=== PATIENT | female | born 1955 | race Caucasian/White ===

== ENCOUNTER 2023-01-10 05:06 | Observation (INO) ==
--- NOTE | 2022-12-21 09:14 | PAT Medication Instructions ---
Medication Instructions Date of Service December 21, 2022 Home Medications L.acidophilus,rhamnosus-B.breve-S.thermophilus 3 billion cell chew tab 1 tab PO QAM acetaminophen 650 mg tablet,extended release 650 mg PO Q12H PRN Pain atorvastatin 20 mg tablet 20 mg PO QAM biotin 1 mg capsule 1 mg PO QAM calcium polycarbophil 625 mg tablet (FiberCon) 625 mg PO QAM celecoxib 200 mg capsule (Celebrex) 200 mg PO QAM escitalopram oxalate 5 mg tablet 2.5 mg PO QAM Multivitamin 50 Plus tablet) 1 tab PO QAM omeprazole 40 mg capsule,delayed release 40 mg PO QAM tramadol 50 mg tablet 50 mg PO TID PRN Pain valsartan 160 mg-hydrochlorothiazide 25 mg tablet 1 tab PO QAM ASK your surgeon for instructions celecoxib 200 mg capsule (Celebrex) 200 mg PO QAM STOP taking 2 weeks before surgery (or as soon as possible if surgery is within 2 weeks) biotin 1 mg capsule 1 mg PO QAM DO NOT take the morning of surgery L.acidophilus,rhamnosus-B.breve-S.thermophilus 3 billion cell chew tab 1 tab PO QAM calcium polycarbophil 625 mg tablet (FiberCon) 625 mg PO QAM Multivitamin 50 Plus tablet) 1 tab PO QAM valsartan 160 mg-hydrochlorothiazide 25 mg tablet 1 tab PO QAM Take morning of surgery With a small sip of water, OTHERWISE NOTHING TO EAT OR DRINK AFTER MIDNIGHT: acetaminophen 650 mg tablet,extended release 650 mg PO Q12H PRN Pain (if needed) atorvastatin 20 mg tablet 20 mg PO QAM escitalopram oxalate 5 mg tablet 2.5 mg PO QAM omeprazole 40 mg capsule,delayed release 40 mg PO QAM tramadol 50 mg tablet 50 mg PO TID PRN Pain (if needed) Take evening before surgery acetaminophen 650 mg tablet,extended release 650 mg PO Q12H PRN Pain (if needed) tramadol 50 mg tablet 50 mg PO TID PRN Pain (if needed) Other Notes If you have any questions please call us at [phone] or [phone] or [phone] or [phone]
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
[2023-01-10] MEDS: ACETAMINOPHEN 500 MG TAB PO SCH ×4 (05:44→20:03)
[2023-01-10] MEDS ORDERED: CeleBREX 200 MG CAP PO SCH (06:00)
[2023-01-10] MEDS ORDERED: DEXAMETHASONE SOD INJ 4 MG/ML VIAL IV SCH (06:00)
[2023-01-10] MEDS ORDERED: TRANEXAMIC ACID 1,000 MG **IV Pre-op IV SCH (06:00)
[2023-01-10] MEDS ORDERED: FAMOTIDINE 20 MG TAB PO SCH (06:00)
[2023-01-10] MEDS ORDERED: LR 60ML/HR IV SCH (06:00)
[2023-01-10] MEDS ORDERED: Scopolamine 1 MG TDSY TD SCH (06:00)
[2023-01-10] MEDS ORDERED: METOCLOPRAMIDE HCL 10 MG TABLET PO SCH (06:00)
[2023-01-10] MEDS ORDERED: LR 500ML BOLUS, THEN 15ML/HR IV SCH (06:00)
[2023-01-10] MEDS ORDERED: BUPIVACAINE 0.5 % 5 MG/1 ML PF 10ML VIAL ONE (06:27)
[2023-01-10] MEDS ORDERED: BUPIVACAINE/EPINEPHRINE 0.5% MPF 1:200,000 30 ML VIAL ONE (06:39)
[2023-01-10] MEDS ORDERED: PROPOFOL IV EMULSION 10 MG/ML 20 ML VIAL IV ONE ×3 (06:43→08:14)
[2023-01-10] MEDS ORDERED: LIDOCAINE 2% MPF LOCAL 5 ML VIAL INFIL ONE (06:43)
[2023-01-10] MEDS ORDERED: ONDANSETRON INJ 2 MG/ML 2 ML VIAL ONE ×2 (06:43→07:18)
[2023-01-10] MEDS ORDERED: MIDAZOLAM HCL 1 MG/ML 2ML VIAL ONE (06:43)
[2023-01-10] MEDS ORDERED: MoRPHine SULFATE PF 1 MG/ML 10 ML AMP/VIAL ONE (06:44)
--- NOTE | 2023-01-10 06:57 | History & Physical Bridge Note ---
Date of Service January 10, 2023 History & Physical Bridge Note I have examined the patient, reviewed the History & Physical and in the interval since the performance of the History & Physical I have noted the following changes of clinical significance: no changes noted
[2023-01-10] MEDS ORDERED: DEXAMETHASONE SOD INJ 4 MG/ML VIAL ONE (07:18)
[2023-01-10] MEDS ORDERED: GLYCOPYRROLATE 0.2 MG/ML VIAL ONE (07:18)
[2023-01-10] MEDS ORDERED: ePHEDrine sulfate 50 MG/ML SYR ONE (07:52)
[2023-01-10] MEDS ORDERED: PHENYLEPHRINE HCL 10 MG/ML VIAL ONE (07:52)
[2023-01-10] MEDS ORDERED: PHENYLEPHRINE 100MCG/ML 5ML SYR ONE (07:52)
[2023-01-10] MEDS ORDERED: MEPERIDINE HCL 25 MG/ML CARP/VIAL IV PRN (08:08)
[2023-01-10] MEDS ORDERED: ePHEDrine sulfate 50 MG/ML AMP IV PRN (08:08)
[2023-01-10] MEDS ORDERED: NALBUPHINE HCL INJ 10 MG/ML AMP IV PRN (08:08)
[2023-01-10] MEDS ORDERED: MoRPHine SULFATE PF 1 MG/ML 10 ML AMP/VIAL INT SPINAL ONE (08:08)
[2023-01-10] MEDS ORDERED: ONDANSETRON INJ 2 MG/ML 2 ML VIAL IV PRN (08:08)
[2023-01-10] MEDS ORDERED: diphenhydrAMINE 50 MG/ML VIAL IV PRN (08:08)
[2023-01-10] MEDS ORDERED: NALOXONE HCL 1 MG in SODIUM CHLORIDE 0.9% 1000ML 1,000 ML IV PRN (08:08)
[2023-01-10] MEDS ORDERED: NALOXONE HCL 0.4 MG/1 ML VIAL/CARP IV PRN (08:08)
[2023-01-10] MEDS ORDERED: NALOXONE HCL 0.08 MG in SYRINGE 1.8 ML IV PRN (08:08)
[2023-01-10] MEDS ORDERED: LACTATED RINGER'S 500 ML IV PRN (08:08)
[2023-01-10] MEDS ORDERED: DC INTRASPINAL MORPHINE SCH (08:15)
[2023-01-10] MEDS ORDERED: NO NARCOTICS OR SEDATIVES SCH (08:15)
[2023-01-10] MEDS ORDERED: SODIUM CHLORIDE 0.9% 1000ML 1,000 ML IV SCH (08:15)
--- NOTE | 2023-01-10 09:06 | Operative Report ---
PG Post Operative Report Pre & Post Diagnosis Operation Date: 01/10/23 07:00 Pre-Op Diagnosis: Degenerative Joint Disease Hip Left Post-Op Diagnosis: Degenerative Joint Disease Hip Left I identified the patient and participated in the time-out.: Yes Procedure Operation Date: 01/10/23 07:00 Actual Procedures p Left Total Hip Arthroplasty(Left) - Kade Alejo MD Surgeon Kade Alejo MD Credit Collector Sudheer Shen PA-C Estimated Blood Loss 200 Findings Consistent with Post-Op Diagnosis Operative findings revealed a very large soft tissue envelope. She had extensive grade 4 gsgv-gc-ohar disease the femoral head and neck acetabulum. Fairly significant hip joint effusion. Specimens Left femoral head sent for pathology Drains None Anesthesia Type Spinal MAC Complications none Disposition Accompanied Patient To Recovery: No Indications Patient is a 67-year-old female with morbid obesity who has had a several year history of increasing left hip pain discomfort describes gotten worse over time. She failed all conservative measures. She is attempted weight loss but unsuccessful. She was having trouble even get around with use of a cane. She elected proceed with total hip arthroplasty. She was fully aware with her size and that the risks of an infection thrombosis are increased and she wanted to proceed. Description of Procedure Operative implants consist of: 1. Biomet G7 size 50 mm acetabular shell. 2. 6.5 cancellous acetabular screws 135 mm length 1 to 25 mm length. 3. Oberlin eliminator. 4. Highly cross-linked polyethylene liner with a 50 mm outer diameter and 36 mm inner diameter. 5. DePuy Corail size 11 KLA femoral stem. 6. +5/36 mm ceramic articular ball. The patient was taken the operating, identified, placed on the operating table supine position protectors were properly padded. IV antibiotics tried by anesthesia team. A spinal anesthetic and been implemented holding area. Luna catheter was placed in sterile fashion. The patient then placed in the right lateral decubitus position. A roll was placed. Stulberg hip positioner was used for positioning. Left hip and leg were then prepped and draped in usual sterile fashion. A posterolateral approach to the left hip was then performed through a curvilinear incision centered over the greater trochanter. Sharp dissection was carried through subcutaneous tissue down to the IT band and gluteal fascia the IT band gluteal fascia/longitudinally in line with skin incision. She had a very thick and large soft tissue envelope. The greater trochanter bursa was excised. The piriformis and external rotators and the posterior hip joint capsule were then released from the posterior aspect hip as a single layer. G reat care was taken throughout the procedure protect the sciatic nerve at all times. Hip was internally rotated and dislocated. A femoral neck osteotomy cut was made with Final Cut about 7 mm above the lesser trochanter. Femoral head was removed and sent for pathology. The femur was retracted anteriorly. Attention drawn the acetabulum. The acetabular labrum was excised. The pulmonary fat was excised. Sequential reaming the acetabular was then performed begin with a size 43 and progressing up to 49. I reamed a little bit with a 50 reamer and placed a 50 mm cup in about 40 degrees lateral opening and 20 degrees of anteversion. I worked hard to get this in appropriate position considering her large soft tissue envelope. It was then fixed with two 6.5 cancellous acetabular screws. Trial liner was placed. Attention drawn the femur. The proximal femur was then with a RiffTrax cutter followed by canal finder. Then broached beginning size 8 and progressed up to 11. We got excellent fit 11. We trialed the hip and the hip was fully stable. Leg lengths seemed appropriate and soft tissue tension seemed appropriate. We elect to place these implants. All trial implants were removed. An apex eliminator was placed. Highly cross- linked polyethylene liner was placed. A size 11 KLA femoral stem was impacted in position. A +5/36 mm ceramic articular ball was placed. Hip was located once again found to be stable. Attention drawn toward closing. The wound was irrigated scopes also pulsatile lavage solution. I did inject locally with 60 cc of half percent Marcaine with epinephrine. The posterior capsule and external rotators were then repaired through drill holes in the posterior trochanter as a single layer with #2 Tycron suture. The IT band gluteal fascia then closed #1 PDS suture running fashion for subcutaneous tissue then closed with 2 layers with a deep layer #2-0 Vicryl suture in the subcutaneous tissues with 2-0 Dexon suture in a buried interrupted fashion. Skin was closed skin barbra leg was then cleaned and dried. A Prevena VAC dressing was applied due to her large soft tissue envelope. The patient then transferred to the recovery room in stable condition. Patient tolerated procedure well and there were no complications. Sudheer Shen, my physician diet assistant, was present for the entire procedure. His assistance was essential and required for appropriate patient positioning, prepping and draping, surgical exposure, performing the technical details of the operation, placement the implants, closure of the wound, and placement of the sterile bandage. I attest to the content of the Intraoperative Record and any orders documented therein. Any exceptions are noted below.
--- NOTE | 2023-01-10 09:33 | XRay Report ---
XR hip 1V LT w pelvis HISTORY: 67 years-old Female IN PACU - Post Surgical left hip arthroplasty COMPARISON: 12/08/2022 TECHNIQUE: AP view of the pelvis with crosstable lateral view of the left hip FINDINGS: Left hip total joint arthroplasty demonstrates satisfactory alignment. No acute fracture or unexpecte d opaque foreign body. Lateral skin barbra are present along with expected postoperative soft tissue swelling with deep tissue air. Moderate osteoarthritis of the right hip. IMPRESSION: Left hip total joint arthroplasty with expected postoperative changes. ACT 112: Negative or not required by law. The above report was generated using voice recognition software. It may contain grammatical, syntax o r spelling errors. Electronically signed by: Itz Valencia M.D. 01/10/2023 9:32 AM
--- NOTE | 2023-01-10 09:51 | Anesthesiology Progress Note ---
Date of Service January 10, 2023 Anesthesia Post Procedure Vital Signs Vital Signs: Temp Pulse Pulse Resp BP BP Pulse Ox 01/10/23 09:35 88 17 122/77 95 01/10/23 09:25 97.7 F 107 H 18 135/68 93 01/10/23 09:15 109 H 21 104/84 94 01/10/23 09:05 95 H 21 142/74 H 100 01/10/23 08:59 99.0 F 108 H 16 124/80 95 01/10/23 05:32 98.1 F 84 20 160/78 H 97 O2 Del Method 01/10/23 09:35 Room Air 01/10/23 09:25 Room Air 01/10/23 09:15 Room Air 01/10/23 09:05 Room Air 01/10/23 08:59 Room Air 01/10/23 05:32 Room Air Pain Intensity Left Hip: Pain Intensity: 2 Transfer of Care Handoff Completed per policy Notes Mental Status: alert / awake / arousable and participated in evaluation Patient Amnestic to Procedure: Yes Nausea / Vomiting: adequately controlled Pain: adequately controlled Airway Patency, RR, SpO2: stable & adequate BP & HR: stable & adequate Hydration State: stable & adequate Neuraxial Anesthesia: was administered and sensory block is resolving Anesthetic Complications: no major complications apparent and Pt Satisfied with anesthetic care
[2023-01-10] MEDS ORDERED: ALUMINUM/MAGNESIUM SUSP 30 ML UDC PO PRN (09:57)
[2023-01-10] MEDS ORDERED: NON-FORMULARY MEDICATION (Biotin 1 mg Capsule) PO SCH (09:57)
[2023-01-10] MEDS ORDERED: VALSARTAN HYDROCHLOROTHIAZIDE PO SCH (09:57)
[2023-01-10] MEDS ORDERED: MAGNESIUM HYDROXIDE SUSP 30 ML UDC PO PRN (09:57)
[2023-01-10] MEDS ORDERED: METOCLOPRAMIDE HCL INJ 5 MG/ML 2 ML VIAL IV PRN (09:57)
[2023-01-10] MEDS ORDERED: NON-FORMULARY MEDICATION (Multivitamin-Minerals-Lutein [Multivitamin 50 Plus] Tablet) PO SCH (09:57)
[2023-01-10] MEDS ORDERED: bisacodyL 10 MG SUPP PR PRN (09:57)
[2023-01-10] MEDS ORDERED: dexAMETHasone 10 MG in SYRINGE 0 ML IV SCH (10:00)
[2023-01-10] MEDS: PANTOprazole 40 MG TAB PO SCH (11:11)
[2023-01-10] MEDS: ASPIRIN 81 MG ECTAB PO SCH ×2 (11:11→20:04)
[2023-01-10] MEDS: MULTIVITAMIN TAB PO SCH (11:12)
[2023-01-10] MEDS: DOCUSATE SODIUM 100 MG CAP PO SCH ×2 (11:12→20:03)
[2023-01-10] MEDS: ATORVASTATIN 20 MG TAB PO SCH (11:12)
[2023-01-10] MEDS: CALCIUM POLYCARBOPHIL 625MG TAB PO SCH (11:13)
[2023-01-10] MEDS: ADVANCED PROBIOTIC 1250 MG CAPSULE PO SCH (11:13)
[2023-01-10] MEDS: hydroCHLOROthiazide 25 MG TAB PO SCH (11:13)
[2023-01-10] MEDS: DOCUSATE SODIUM/SENNA 50/8.6MG TAB PO SCH (11:14)
[2023-01-10] MEDS: VALSARTAN 80 MG TAB PO SCH (11:14)
[2023-01-10] MEDS: ESCITALOPRAM OXALATE ORAL SOLN 5 MG/5 ML PO SCH (11:14)
[2023-01-10] MEDS: SODIUM CHLORIDE 0.9% 1000ML 1,000 ML IV SCH ×2 (11:20→20:09)
[2023-01-10] MEDS: KETOROLAC TROMETHAMINE 15 MG/ML VIAL IV SCH ×3 (12:23→23:08)
[2023-01-10] MEDS ORDERED: TRANEXAMIC ACID / 0.7% NACL 1,000 MG/100 ML BAG IV SCH (15:00)
--- NOTE | 2023-01-10 15:43 | Progress Notes ---
DATE OF SERVICE: 01/10/2023 SUBJECTIVE: A 67-year-old white female postoperative from a left total hip replacement. She is doin g well. Really not having any pain yet. No chest pain or shortness of breath. Not feeling dizzy or lightheaded. OBJECTIVE: VITAL SIGNS: Temperature 36.6. Vital signs are stable. PHYSICAL EXAMINATION: GENERAL: Physical examination shows a pleasant middle-aged female. She is lying in bed and looks qu ite comfortable. LUNGS: Clear to auscultation. HEART: Regular rate and rhythm. ABDOMEN: Soft, nontender, and nondistended. EXTREMITIES: Grossly neurovascularly intact except as follows. Examination of the left hip and leg reveals a Prevena VAC dressing to be in place. Leg lengths are e qual. She can dorsiflex and plantarflex her foot appropriately. She is neurologically intact. X-RAYS: X-rays of the left hip from recovery room are reviewed. It shows left uncemented hip replac ement. Components looked to be in good position. No signs of problems. ASSESSMENT: A 67-year-old white female postoperative from left hip replacement, doing well. Pain is controlled. Hip is located. She is neurologically intact. PLAN: 1. DVT prophylaxis to include thigh-high TEDs, SCDs, and aspirin twice a day. 2. PT, OT, and weightbear as tolerated. Left total hip protocol. 3. Pain control, doing okay with current pain regimen. 4. Disposition: Plan is to discharge her to home with some home health once she is adequately recov ered. We will see how therapy goes tomorrow. Job ID: [id number]
[2023-01-10] MEDS: ceFAZolin 2000MG 2,000 MG/15 ML SYR IV SCH ×2 (16:53→22:39)
[2023-01-10] MEDS: Scopolamine CHECK PATCH PLACEMENT SCH ×2 (17:50→23:07)
[2023-01-10] MEDS: ASCORBIC ACID 500 MG TAB PO SCH (17:51)
[2023-01-10] MEDS ORDERED: SENNA 8.6 MG TAB PO SCH (21:00)
[2023-01-11] MEDS ORDERED: ONDANSETRON INJ 2 MG/ML 2 ML VIAL IV PRN (02:08)
[2023-01-11] MEDS ORDERED: HYDROmorphone INJ 0.5 MG/0.5 ML SYR IV PRN (02:08)
[2023-01-11] MEDS ORDERED: NALOXONE HCL 0.4 MG/1 ML VIAL/CARP IV PRN (02:08)
[2023-01-11] MEDS: traMADol HCL 50 MG TABLET PO PRN ×2 (03:35→09:41)
[2023-01-11] MEDS: KETOROLAC TROMETHAMINE 15 MG/ML VIAL IV SCH ×2 (05:56→12:25)
[2023-01-11] MEDS: ACETAMINOPHEN 500 MG TAB PO SCH ×2 (05:57→13:54)
[2023-01-11 06:50] LABS: Basophils # (auto) 0.02 K/uL (0-0.2); Basophils % (auto) 0.2 %; Hematocrit (blood only) 29.7 % (37.0-47.0); Hemoglobin 9.8 g/dl (12.0-16.0); Immature Granulocytes # (auto) 0.05 K/uL (0.01-0.20); Immature Granulocytes % (auto) 0.5 %; Lymphocytes # (auto) 1.06 K/uL (1.2-3.4); Lymphocytes % (auto) 9.7 %; Mean Corpuscular Hemoglobin 29.1 pg (25.0-34.0); Mean Corpuscular Volume 88.1 fL (80.0-100.0); Mean Platelet Volume 10.7 fL (9.4-12.4); Monocytes # (auto) 1.01 K/uL (0.11-0.59); Monocytes % (auto) 9.3 %; Neutrophils # (auto) 8.75 K/uL (1.40-6.50); Neutrophils % (auto) 80.3 %; Platelet Count 228 K/uL (130-400); RDW Coefficient of Variation 14.4 % (11.5-14.5); RDW Standard Deviation 46.2 fL (36.4-46.3); Red Blood Count 3.37 M/uL (4.20-5.40); White Blood Count 10.89 K/ul (4.8-10.8)
[2023-01-11 07:34] LABS: BUN Creatinine Ratio 29.9 (10-20); Calcium 9.2 mg/dl (8.5-10.1); Creatinine Clr Calc Pharmacy 69.3 ml/min; Est GFR (African American) 69.6 ml/min; Potassium 3.8 mmol/L (3.5-5.1)
[2023-01-11] MEDS: DOCUSATE SODIUM 100 MG CAP PO SCH (08:12)
[2023-01-11] MEDS: ASCORBIC ACID 500 MG TAB PO SCH (08:12)
[2023-01-11] MEDS: MULTIVITAMIN TAB PO SCH (08:13)
[2023-01-11] MEDS: ATORVASTATIN 20 MG TAB PO SCH (08:13)
[2023-01-11] MEDS: ESCITALOPRAM OXALATE ORAL SOLN 5 MG/5 ML PO SCH (08:13)
[2023-01-11] MEDS: ADVANCED PROBIOTIC 1250 MG CAPSULE PO SCH (08:14)
[2023-01-11] MEDS: PANTOprazole 40 MG TAB PO SCH (08:14)
[2023-01-11] MEDS: VALSARTAN 80 MG TAB PO SCH (08:14)
[2023-01-11] MEDS: CALCIUM POLYCARBOPHIL 625MG TAB PO SCH (08:14)
[2023-01-11] MEDS: Scopolamine CHECK PATCH PLACEMENT SCH (08:15)
[2023-01-11] MEDS: DOCUSATE SODIUM/SENNA 50/8.6MG TAB PO SCH (09:17)
[2023-01-11] MEDS: ASPIRIN 81 MG ECTAB PO SCH (09:17)
[2023-01-11] MEDS: hydroCHLOROthiazide 25 MG TAB PO SCH (09:17)
--- NOTE | 2023-01-11 13:11 | Progress Notes ---
SUBJECTIVE: A 67-year-old female postoperative day 1 from a left hip replacement. She is doing quit e well. Rates her pain at most severe to 2-3/10. No chest pain or shortness of breath. Therapy marifer t pretty well. OBJECTIVE: VITAL SIGNS: Temperature is 36.7. Vital signs are stable. GENERAL: Shows a pleasant middle-aged female. She is lying in bed, looks pretty comfortable. LUNGS: Clear to auscultation. HEART: Regular rate and rhythm. ABDOMEN: Soft, nontender, nondistended. EXTREMITIES: Grossly neurovascularly intact except as follows. Examination of the left leg reveals the Prevena VAC dressing to be in place. Leg lengths were equal. Thigh is soft and supple. She is neurologically intact. LABORATORY DATA: Hemoglobin 9.8. Hematocrit 29.7. Electrolytes are stable. ASSESSMENT: A 67-year-old female postoperative day 1 from a left hip replacement, doing pretty well. Pain is controlled. Hip is located. She is neurologically intact. She did pretty well in therapy . She is hoping to go home. PLAN: 1. DVT prophylaxis includes thigh-high TEDs, SCDs, and aspirin twice a day. 2. PT, OT, weightbear as tolerated. Left total hip protocol. 3. Pain control, doing okay with current pain regimen. 4. Disposition: Plan to discharge to home today if does okay in therapy. Job ID: [id number]
--- NOTE | 2023-01-14 19:31 | Discharge Summary ---
Date of Service January 14, 2023 Discharge Data Procedures Performed Operation Date: 01/10/23 07:00 Actual Procedures p Left Total Hip Arthroplasty(Left) - Kade Alejo MD Hospital Course (1) S/P total left hip arthroplasty: This is a 67 year old patient admitted on 01/10/23 and underwent total hip arthroplasty. She tolerated the procedure well and there were no complications. Transferred to the PACU post op and later to the orthopedic floor for further care. She was given ancef for antibiotic prophylaxis. She was also given NISHI stockings, SCDs, and aspirin for DVT prophylaxis. Hemoglobin, hematocrit, and vital signs were monitored during she hospital stay and remained stable. Did not require any blood transfusions. There were no complications during her hospital stay. By post op day #1 the patient was tolerating a regular diet, pain was reasonably controlled with oral pain medicine, and she was participating in physical therapy. On post op day #1 the patient was discharged home and set up with home health care. She was given printed discharge instructions including prescriptions for extra strength tylenol, aspirin, cefadroxil, ketorolac, zofran, and tramadol. Continue hip precautions. Continue physical therapy, weight bearing as tolerated. Continue NISHI stockings. Follow up approximately 2 weeks post op or sooner if there are problems or concerns. Coding Level of Care Code None Diagnoses S/P total left hip arthroplasty Z96.642
== END 2023-01-11 13:59 | disposition home health service (06) ==
LOC: ASU 05:06 → 3E 05:06